=== PATIENT | male | born 1995 | race Two or more races ===

== ENCOUNTER 2018-10-24 20:14 | Emergency (ER) | payer MEDICAID ==
[2018-10-24 20:41] VITALS: BP 131/77
--- NOTE | 2018-10-24 23:30 | EKG REPORT ---
SEVERITY:- BORDERLINE ECG - SINUS TACHYCARDIA BORDERLINE T WAVE ABNORMALITIES : Confirmed by: Ora Wade 24-Oct-2018 23:28:52
== END 2018-10-25 00:08 | disposition left against medical advice (07) ==
LOC: ER 20:14
DX: Z53.21 Procedure and treatment not carried out due to patient leaving prior to being seen by health care provider (principal)
CPT/HCPCS: 93005; 93010